=== PATIENT | female | born 1985 ===

== ENCOUNTER 2024-09-09 19:53 | Inpatient (IN) | payer OTHER, SELFPAY ==
--- NOTE | ~2024-09-09 | XR_ITS ---
EXAMINATION: XR CHEST CLINICAL INFORMATION: productive cough, r/o pneumonia COMPARISON: None available. TECHNIQUE: 2 views of the chest were obtained. FINDINGS: The lungs are clear. The cardiomediastinal silhouette is normal in size. There is no pleural effusion or pneumothorax. No acute osseous abnormality. Dextrocurvature of the thoracic spine. XR/XR chest 2V IMPRESSION: No acute cardiopulmonary findings. Electronically signed by: Demetri Lennon MD 09/10/2024 08:33 PM [facility]
--- NOTE | ~2024-09-09 | US_ITS ---
EXAMINATION: US PELVIS CLINICAL INFORMATION: Vaginal bleeding COMPARISON: None available. TECHNIQUE: Ultrasound of the pelvis is performed using both transabdominal and transvaginal transducers along with Doppler. Transvaginal imaging is performed due to inadequate visualization transabdominally. FINDINGS: Uterus: The uterus is anteverted and measures 10.8 x 3.9 x 5.4 cm. The double wall endometrial thickness is 11 mm. The uterus is smooth in contour and has normal myometrial echogenicity. A single left lateral uterine body probable fibroid is present measuring 2.4 x 1.6 x 2.3 cm. Nabothian cysts are present in the cervix one of which appears complex with echogenic fluid throughout. Adnexa: Both ovaries are visualized. There is normal color flow to the adnexa. There is no ovarian torsion. There is no pelvic ascites or fluid collection. Right ovary measures 4.1 x 1.7 x 2.5 cm for a volume of 9.1 cc which includes a 1.6 cm cyst. Left ovary measures 2.0 x 1.5 x 1.6 cm for a volume of 2.5 cc. US/US pelvic and transvaginal IMPRESSION: 1. A cause for the patient's vaginal bleeding has not been found. 2. Incidental note made of a 2.4 cm uterine fibroid and a 1.6 cm right ovarian cyst. Electronically signed by: Jaime Manzo MD 09/20/2024 05:35 PM [facility]
[2024-09-09 20:30] VITALS: BMI 30.2
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
--- NOTE | 2024-09-10 04:50 | PC.NURSE ---
Patient was unable to answer most of the questions on admission or explain any new medication changes she has had recently.
[2024-09-10 08:00] VITALS: BP 114/56; PULSE 84; TEMP 36.7; O2SAT 99
[2024-09-10] MEDS: Nicotine Polacrilex 2 MG GUM BUCCAL (09:34)
--- NOTE | 2024-09-10 09:54 | PC.NURSE ---
Spoke to Debbie regarding her documented allergies. She stated that she is not allergic to acetaminophen, she used to take it all the time. She said that she is not allergic to hydrogen peroxide; has an intolerance to dairy which is rectified by lactase -(which is listed on incoming medication report from [facility]), and that she does not believe that she is allergic to oxycodone or penicillin, that penicillin messes with my gut laura and that is bad and anything that starts with oxy scares me so it is more of a panic reaction. Provider notified.
[2024-09-10] MEDS: hydrOXYzine HCL 25 MG TABLET PO ×2 (10:46→21:11)
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
--- NOTE | 2024-09-10 11:57 | HO.PM.IMCN ---
History of Present Illness Data of Consult Service Date: 09/10/24 Requesting physician: Van Melendez Primary Care Provider: Unknown Physician HPI Reason for consult: medical consult Patient is a 39-year-old female with a past medical history significant for bipolar disorder, eating disorder, migraines, fibromyalgia, hypertension Shante's, GERD, IBS, migraines, mild intermittent reactive airway disease, and ?UT in 2018 (per pt), who was admitted to [facility] for depression and anxiety. She was recently seen at [facility] and was having anxiety and chest pain, workup negative for UT but she felt they were not taking her seriously and started threatening homicidal ideations. She reports somatic symptoms, every time a question is asked she reports that she starts to feel those symptoms. The largest concern that she brought up many times was that she coughs up stephens sputum and has been doing this for quite awhile but has not had any imaging for further evaluation. She does have a history of smoking occasional cigarettes, currently using a patch and also smoking marijuana. She denies any alcohol use. The background to her history of UT is unclear, she reports that she inhaled something which cause this. Review of Systems Constitutional: Constitutional: Denies body ache(s), Denies chills, Denies fever(s) and Denies headache(s) Eyes: Eyes: Denies change in vision ENT: Denies headache(s), Denies nasal congestion and Denies sore throat Cardiovascular: Cardiovascular: Denies chest pain, Denies rapid heart rate, Denies leg edema and Denies dyspnea Respiratory: Respiratory: Reports change in phlegm color (persaud), Denies dyspnea and Denies wheezing Gastrointestinal: Gastrointestinal: Denies constipation, Denies diarrhea, Denies nausea and Denies vomiting Genitourinary: Genitourinary: Denies dysuria Musculoskeletal: Musculoskeletal: Denies myalgias Integumentary/Breasts: Skin/Breast: Denies rash Neurologic: Denies headache(s) and Denies memory loss Psychiatric: Psychiatric: Reports anxiety and Denies memory loss Allergic/Immunologic: Allergic/Immunologic: Denies wheezing [facility] Medical History (Updated 09/10/24 @ 12:10 by Clotilde Villaseñor PA-C) Mild persistent asthma Migraines IBS (irritable bowel syndrome) HTN (hypertension) GERD (gastroesophageal reflux disease) Shante's disease Depression Functional capacity: independent ambulation Social History Do you presently have visiting nurse or other home services: No (PT TOO ANXIOUS TO ANSWER QUESTIONS) Patient Tobacco Use Status: Former Tobacco user Smoked in Last 30 Days: No e-Cigarette/Vaping Use: Never Used Patient Interested in Nicotine Replacement: No Patient Given Instructions on How to Stop Smoking: No Second Hand Smoke Exposure: No Use of substances other than those prescribed or required for medical reasons: Yes Substance Use Type: Marijuana Last Used Substance: Unknown Currently Displaying Signs/Symptoms of Drug Intoxication Withdrawal: No Any prior treatment program specific to substance use: No Spiritual Healthcare Practices: UNKNOWN Jain Healthcare Practices: UNKNOWN Cultural Healthcare Practices: UNKNOWN Advance Directives: No Advance Directives Information Provided: No Do you have thoughts of harming others: None Do you have a plan to hurt others: No Plan Recently lost weight without trying: No Eating poorly because of decreased appetite: No Nutrition Risks: No Nutritional Risk Patient : No : No Poor oral hygiene: No Narrative: smokes occasiona lciagrettes for stress relief. states she grew up with 2 alcoholics, she does not drink. smokes MJ but quitting. Meds Allergies Allergy/AdvReac Type Severity Reaction Status Date / Time hydrogen peroxide Allergy Unknown Verified 09/09/24 23:04 oxycodone [From Percocet] Allergy Rash Verified 09/10/24 00:10 Penicillins Allergy Unknown Verified 09/09/24 22:56 Active Medications: Current Medications Acetaminophen (Acetaminophen 325 Mg Tablet) 650 mg PO Q6H PRN PRN Reason: Headache/Pain Mild Scale (1-3) Al Hydroxide/Mg Hydroxide (Magnesium Hydrox/Alum Hydrox 30 Ml Oral.Susp) 30 ml PO Q6H PRN PRN Reason: Heartburn/Nausea Diphenhydramine HCl (Diphenhydramine Hcl 25 Mg Capsule) 50 mg PO BEDTIME PRN PRN Reason: Sleep Hydroxyzine HCl (Hydroxyzine Hcl 25 Mg Tablet) 25 mg PO Q6H PRN PRN Reason: Anxiety Last Admin: 09/10/24 10:46 Dose: 25 mg Magnesium Hydroxide (Milk Of Magnesia 30 Ml Oral.Susp) 30 ml PO DAILY PRN PRN Reason: Constipation Melatonin (Melatonin 3 Mg Tablet) 3 mg PO BEDTIME PRN PRN Reason: Insomnia Nicotine (Nicotine 7 Mg Patch.Td24) 7 mg TRANSDERMA DAILY GREGG Nicotine Polacrilex (Nicotine Polacrilex 2 Mg Gum) 2 mg BUCCAL Q2H PRN PRN Reason: Nicotine Cravings Last Admin: 09/10/24 09:34 Dose: 2 mg Trazodone HCl (Trazodone Hcl 50 Mg Tablet) 50 mg PO BEDTIME MRX1 PRN PRN Reason: Insomnia Home Medications ?Medication ?Instructions ?Recorded ?Confirmed ?Last Taken ?Type albuterol sulfate 90 mcg/actuation 2 puff inhalation Q4-6H PRN dyspnea 09/10/24 09/10/24 Unknown History aerosol inhaler (Ventolin HFA) ferrous sulfate 325 mg (65 mg 325 mg PO QAM 09/10/24 09/10/24 Unknown History iron) tablet,delayed release levothyroxine 25 mcg tablet 25 mcg PO DAILY 09/10/24 09/10/24 Unknown History oxcarbazepine 300 mg tablet 300 mg PO BID 09/10/24 09/10/24 Unknown History oxcarbazepine 600 mg tablet 600 mg PO BID 09/10/24 09/10/24 Unknown History prazosin 2 mg capsule 5 mg PO BEDTIME 09/10/24 09/10/24 Unknown History Physical Exam Vital Signs and Narrative: Vital Signs: Last Vital Signs Temp 98.0 F 09/10/24 08:00 Pulse 84 09/10/24 08:00 BP 114/56 L 09/10/24 08:00 Pulse Ox 99 09/10/24 08:00 O2 Del Method Room Air 09/10/24 08:00 BMI result Body Mass Index 30.2 General: AOx3, no acute distress Resp: CTA bilaterally, minimal effort with deep inspiration states cannot take a deep breath since seeing a chiropractor CVS: S1, S2, RRR GI: +BS, NT, no distention Skin: Warm, dry Neuro: Cranial nerves II-XII grossly intact bilaterally. Motor grossly intact bilaterally. normal sensation. strength 5/5 bilaterally upper and lower extremities. Extremities: No edema Psych: somatization, anxious Assessment and Plan (1) Medical clearance for psychiatric admission: Status: Acute (2) Productive cough: Status: Acute Plan Patient is a 39-year-old female with a past medical history significant for bipolar disorder, eating disorder, migraines, fibromyalgia, hypertension Shante's, GERD, IBS, migraines, mild intermittent reactive airway disease, and ?UT in 2018 (per pt), who was admitted to adult psych for depression and anxiety with HI. mood disorder - plan per psych productive cough - lungs normal on exam but difficult to auscultate - recent CBC normal, no fever - pneumonia unlikely, sputum production likely due smoking history - CXR for reassurance and to r/o walking pneumonia - CBC in pending labs mild persistent asthma - no acute exacerbation - no maintenance inhalers for quite a while - continue with albuterol PRN, if needing to use frequently consider adding advair Hashimotos - continue levothyroxine occasional tobacco use - has nicotine patch - smoking cessation discussed Thank you for allowing me to participate in the pt's care. Please contact the medical team if any questions or concerns.
[2024-09-10 12:02] LABS: MANUAL DIFF FLAG NO
[2024-09-10 12:06] LABS: Basophils Absolute Auto 0.1 X10*3/uL (0.0-0.2); Basophils Percent Auto 0.8 % (0-2); Eosinophils Absolute Auto 0.5 X10*3/uL (0.0-0.4); Eosinophils Percent Auto 3.9 % (0-4); Hematocrit 31.7 % (37.0-47.0); Hemoglobin 9.9 g/dl (12.0-16.0); Imm Gran Abs Auto 0.04 X10*3/uL (0.00-0.03); Imm Gran Pct Auto 0.3 % (0.0-0.4); Lymphocytes Absolute Auto 2.1 X10*3/uL (1.2-4.9); Lymphocytes Percent Auto 17.7 % (20-40); Mean Corpuscular HGB Conc 31.2 g/dl (31.0-35.0); Mean Corpuscular Hemoglobin 23.3 pg (27.0-33.0); Mean Corpuscular Volume 74.6 fL (80.0-98.0); Mean Platelet Volume 9.9 fL (9.4-12.3); Monocytes Absolute Auto 0.9 X10*3/uL (0.1-1.2); Monocytes Percent Auto 7.5 % (2-11); Neutrophils Absolute Auto 8.3 x10*3/uL (2.0-8.3); Neutrophils Percent Auto 69.8 % (45-73); Platelet Count 340 X10*3/uL (160-400); Red Blood Count 4.25 X10*6/uL (4.20-5.50); Red Cell Distribution Width 15.9 % (11.0-16.0); White Blood Count 11.9 X10*3/uL (4.8-10.8)
[2024-09-10 12:28] LABS: Alanine Aminotransferase 28 U/L (0-31); Albumin Level 4.2 g/dL (3.5-5.0); Alkaline Phosphatase 80 U/L (39-117); Anion Gap 13 (12-20); Aspartate Amino Transferase 22 U/L (5-31); Bilirubin Total 0.3 mg/dL (0.0-1.0); Blood Urea Nitrogen 10 mg/dL (9-16); Calcium 9.2 mg/dL (8.4-10.2); Carbon Dioxide 24 mmol/L (22-29); Chloride 104 mmol/L (96-108); Cholesterol 150 mg/dL (<200); Creatinine Clr Calc Pharmacy 130.3; Estimated Glomerular Filt Rate > 60; Glucose Fasting 95 mg/dL (60-99); HDL Cholesterol 60 mg/dL (>40); LDL Cholesterol Calculated 70 mg/dL (<100); Potassium 4.1 mmol/L (3.3-5.1); Sodium 137 mmol/L (135-145); Total Protein 7.3 g/dL (6.5-8.0); Triglycerides 102 mg/dL (<150)
[2024-09-10 12:42] LABS: Thyroid Stimulating Hormone 1.05 uIU/mL (0.32-4.0)
[2024-09-10] MEDS: Nicotine 7 MG PATCH.TD24 TRANSDERMA (13:13)
[2024-09-10 20:00] VITALS: BP 110/74; PULSE 82; RESP 16; TEMP 36.7; O2SAT 98
[2024-09-10] MEDS: ARIPiprazole 5 MG TABLET PO (21:11)
[2024-09-10] MEDS: lamoTRIgine 25 MG TABLET PO (21:12)
[2024-09-10] MEDS: traZODone HCL 50 MG TABLET PO (21:19)
--- NOTE | 2024-09-11 07:23 | PC.NURSE ---
Patient asked for her Levothyroxine 25 mcg po that is on her home med list. Medication not found on current MAR. Mark Gordon notified via [place] text, she will put in when she arrives at the hospital. Patient made aware.
[2024-09-11] MEDS: Nicotine 7 MG PATCH.TD24 TRANSDERMA (07:53)
[2024-09-11 08:00] VITALS: RESP 18
[2024-09-11] MEDS: Levothyroxine Sodium 25 MCG TABLET PO (09:57)
[2024-09-11 10:57] VITALS: BP 118/65; PULSE 94
--- NOTE | 2024-09-11 12:49 | HO.PSYCHPN ---
Subjective Subjective Date of Service: 09/11/24 Reason For Visit: Bipolar 1 disorder Subjective Notes: Conditional Voluntary Healthcare Proxy: No Guardianship: No Medical Problems Affecting Mental Status: No Interim History: Team report pt slept for eight hours, she affirmed, stating she slept well. Discussion was with some tangential content. Review of medications with adjustments Pt discussed her distress at being given an FENTON by [facility] team and the pain she experienced post injection- I think they are sick of me and don't like me any more. Discussed voice to skull technology as is on [employer] (Remote Neural Monitoring) and hearing voices that are caused by secret govt. Pt is fearful of this and believes she has been afflicted with black outs, catching herself saying untrue statements or possibly having executive function impairement as she reports her father has. Discussed having 2 broken teeth. We will contact her dentistJett to arrange OP appt. Medication Compliance: Yes Side effects from medications: No Attending Groups: No Review of Systems Acute medical concerns: No Review of Systems Review of Systems Denies Mental Status Exam Mental Status Exam Patient Appearance: Appropriate Patient Orientation: Person, Place and Situation Level of Consciousness: Alert Patient Behavior: Talkative, Anxious and Good Eye Contact Mood Description: Anxious and Apprehensive Affect Description: Fearful, Anxious and Apprehensive Patient Cognition Impaired: No Ability to Follow Directions: Good Speech Pattern: Spontaneous Speech Memory Description: Episodic Impaired Hallucinations: Auditory Delusions: Paranoid Ideation and Present Perceptual Disturbances: Derealization Thought Process: Distracted and Rumination Thought Content: positive for Circumstantial, positive for Perseveration and positive for Preoccupation Depressive Symptoms: Increased Anxiety Judgement: Fair Diagnostics Vital Signs (24Hr): Vital Signs - 24 hr 09/10/24 20:00 09/11/24 08:00 09/11/24 10:57 Temperature 98.1 F Pulse Rate 82 94 Respiratory Rate 16 18 Blood Pressure 110/74 118/65 Pulse Oximetry 98 Oxygen Delivery Method Room Air BMI result Body Mass Index 30.2 Labs 09/10/24 11:38 09/10/24 11:38 Labs: Laboratory Results - last 48 hr 09/10/24 11:38 WBC 11.9 H RBC 4.25 Hgb 9.9 L Hct 31.7 L MCV 74.6 L MCH 23.3 L MCHC 31.2 RDW 15.9 Plt Count 340 MPV 9.9 Immature Gran % (Auto) 0.3 Neut % (Auto) 69.8 Lymph % (Auto) 17.7 L [place] % (Auto) 7.5 Eos % (Auto) 3.9 Baso % (Auto) 0.8 Lymph # (Auto) 2.1 [place] # (Auto) 0.9 Eos # (Auto) 0.5 H Baso # (Auto) 0.1 Abs Immat Gran (auto) 0.04 H Absolute Neuts (auto) 8.3 Absolute Nucleated RBC 0.000 Nucleated RBC % (auto) 0.0 Sodium 137 Potassium 4.1 Chloride 104 Carbon Dioxide 24 Anion Gap 13 BUN 10 Creatinine 0.71 Estim Creat Clear Calc 130.3 Estimated GFR > 60 Fasting Glucose 95 Calcium 9.2 Total Bilirubin 0.3 AST 22 ALT 28 Alkaline Phosphatase 80 Total Protein 7.3 Albumin 4.2 Triglycerides 102 Cholesterol 150 LDL Cholesterol, Calc 70 HDL Cholesterol 60 TSH 1.05 Imaging Radiology Impressions: ITS Impressions Chest X-Ray 09/10/24 12:43 IMPRESSION: No acute cardiopulmonary findings. Electronically signed by: Demetri Lennon MD 09/10/2024 08:33 PM [facility] [place] Medications Medications Current Medications Acetaminophen (Acetaminophen 325 Mg Tablet) 650 mg PO Q6H PRN PRN Reason: Headache/Pain Mild Scale (1-3) Al Hydroxide/Mg Hydroxide (Magnesium Hydrox/Alum Hydrox 30 Ml Oral.Susp) 30 ml PO Q6H PRN PRN Reason: Heartburn/Nausea Albuterol Sulfate (Albuterol Sulfate 90 Mcg 8 Gm Inhaler) 2 puff INHALE RQ4H PRN PRN Reason: Wheezing Aripiprazole (Aripiprazole 5 Mg Tablet) 5 mg PO BEDTIME GREGG Diphenhydramine HCl (Diphenhydramine Hcl 25 Mg Capsule) 50 mg PO BEDTIME PRN PRN Reason: Sleep Fluticasone/Vilanterol (Fluticasone/Vilanterol 100/25 Blst.W.Dev) 1 puff INHALE RDAILY GREGG Hydroxyzine HCl (Hydroxyzine Hcl 25 Mg Tablet) 25 mg PO Q6H PRN PRN Reason: Anxiety Last Admin: 09/10/24 21:11 Dose: 25 mg Lactase (Lactase Tablet) 2 tab PO TIDWM GREGG Lamotrigine (Lamotrigine 25 Mg Tablet) 25 mg PO BEDTIME [facility] Last Admin: 09/10/24 21:12 Dose: 25 mg Levothyroxine Sodium (Levothyroxine Sodium 25 Mcg Tablet) 25 mcg PO DAILY@0600 [facility] Last Admin: 09/11/24 09:57 Dose: 25 mcg Magnesium Hydroxide (Milk Of Magnesia 30 Ml Oral.Susp) 30 ml PO DAILY PRN PRN Reason: Constipation Melatonin (Melatonin 3 Mg Tablet) 3 mg PO BEDTIME PRN PRN Reason: Insomnia Nicotine (Nicotine 7 Mg Patch.Td24) 7 mg TRANSDERMA DAILY [facility] Last Admin: 09/11/24 07:53 Dose: 7 mg Nicotine Polacrilex (Nicotine Polacrilex 2 Mg Gum) 2 mg BUCCAL Q2H PRN PRN Reason: Nicotine Cravings Last Admin: 09/10/24 09:34 Dose: 2 mg Trazodone HCl (Trazodone Hcl 50 Mg Tablet) 50 mg PO BEDTIME MRX1 PRN PRN Reason: Insomnia Last Admin: 09/10/24 21:19 Dose: 50 mg Allergies Allergies Allergy/AdvReac Type Severity Reaction Status Date / Time hydrogen peroxide Allergy Unknown Verified 09/09/24 23:04 oxycodone [From Percocet] Allergy Rash Verified 09/10/24 00:10 Penicillins Allergy Unknown Verified 09/09/24 22:56 Assessment & Plan Assessment & Plan (1) Productive cough: Status: Acute Code(s): R05.8 - Other specified cough (2) Depression: Status: Acute Code(s): F32.A - Depression, unspecified Plan 09/11/24 -Med review completed with pt, questions addressed, changes made. -Encourage milieu participation -B12,Folate, Iron Profile Reason for continued inpatient stay Substantial Risk for: rapid decompensation and med/psych decompensation Time Spent With Patient Time: Total time managing care of this patient today ____ minutes.
[2024-09-11] MEDS: Acetaminophen 325 MG TABLET 650 MG PO (14:58)
[2024-09-11] MEDS: Lactase TABLET 2 TAB PO (17:16)
[2024-09-11] MEDS: hydrOXYzine HCL 25 MG TABLET PO (19:50)
[2024-09-11 20:00] VITALS: BP 118/70; PULSE 97; RESP 18; TEMP 37.2; O2SAT 99
[2024-09-11] MEDS: lamoTRIgine 25 MG TABLET PO (20:28)
[2024-09-11] MEDS: OXcarbazepine 300 MG TABLET PO (20:28)
[2024-09-11] MEDS: ARIPiprazole 5 MG TABLET PO (20:28)
[2024-09-11] MEDS: traZODone HCL 50 MG TABLET PO (21:27)
[2024-09-12] MEDS: Levothyroxine Sodium 25 MCG TABLET PO (07:23)
[2024-09-12 08:00] VITALS: BP 100/52; PULSE 77; RESP 16; TEMP 36.5; O2SAT 99
[2024-09-12 09:01] LABS: Iron 13 mcg/dL (30-160); Percent Iron Saturation 4 % (15-50); Total Iron Binding Capacity 332 mcg/dL (228-428); Unsaturated Iron Binding 319 ug/dL
[2024-09-12] MEDS: Nicotine 7 MG PATCH.TD24 TRANSDERMA (09:03)
[2024-09-12] MEDS: hydrOXYzine HCL 25 MG TABLET PO ×2 (09:07→21:38)
[2024-09-12 09:37] LABS: Folate 13.2 ng/mL (> or = 4.0); Vitamin B12 633 pg/mL (200-900)
[2024-09-12] MEDS: Acetaminophen 325 MG TABLET 650 MG PO ×2 (09:48→18:12)
[2024-09-12] MEDS: Lactase TABLET 2 TAB PO ×3 (09:51→17:23)
--- NOTE | 2024-09-12 12:49 | P.PNPSI_ITS ---
Subjective Subjective Date of Service: 09/12/24 Reason For Visit: Bipolar 1 disorder Subjective Notes: Conditional Voluntary Healthcare Proxy: No Guardianship: No Medical Problems Affecting Mental Status: No Interim History: 39 yo continues psychotic- asking me about interaction with trileptal and abilify and it lowering effectiveness of abilify- Spiritual references- low frustration tolerance - report from nursing Pt reports sleeping Medication Compliance: Yes Side effects from medications: Yes (angry about long acting injectable abilify can't get out ) Attending Groups: Intermittent Review of Systems Acute medical concerns: No Medical Review of Systems: unchanged Mental Status Exam Mental Status Exam Patient Appearance: Unkempt Patient Orientation: Person, Place, Time and Situation Level of Consciousness: Awake Patient Behavior: Guarded, Talkative and Good Eye Contact Behavior Comments: wearing a mask in bed, asked her if she wanted me to wear a mask- said no then got up and took off her mask intense eye contact Mood Description: Anxious Affect Description: Blunted and Apprehensive Patient Cognition Impaired: No Ability to Follow Directions: Fair Speech Pattern: Clear and Rambling Hallucinations: None Delusions: Paranoid Ideation Thought Process: Illogical Thought Content: positive for Disorganized Depressive Symptoms: Increased Anxiety, Increased Irritability and Difficulty Concentrating Abnormal Motor Activity Signs and Symptoms: Restlessness Judgement: Poor Diagnostics Vital Signs (24Hr): Vital Signs - 24 hr 09/11/24 20:00 Temperature 98.9 F Pulse Rate 97 Respiratory Rate 18 Blood Pressure 118/70 Pulse Oximetry 99 Oxygen Delivery Method Room Air BMI result Body Mass Index 30.2 Labs 09/10/24 11:38 09/10/24 11:38 Labs: Laboratory Results - last 48 hr 09/12/24 08:25 Iron 13 L TIBC 332 % Saturation 4 L Unsat Iron Binding 319 Vitamin B12 633 Folate 13.2 Imaging Radiology Impressions: ITS Impressions Chest X-Ray 09/10/24 12:43 IMPRESSION: No acute cardiopulmonary findings. Electronically signed by: Demetri Lennon MD 09/10/2024 08:[address] [facility] [place] Medications Medications Current Medications Acetaminophen (Acetaminophen 325 Mg Tablet) 650 mg PO Q6H PRN PRN Reason: Headache/Pain Mild Scale (1-3) Last Admin: 09/12/24 09:48 Dose: 650 mg Al Hydroxide/Mg Hydroxide (Magnesium Hydrox/Alum Hydrox 30 Ml Oral.Susp) 30 ml PO Q6H PRN PRN Reason: Heartburn/Nausea Albuterol Sulfate (Albuterol Sulfate 90 Mcg 8 Gm Inhaler) 2 puff INHALE RQ4H PRN PRN Reason: Wheezing Aripiprazole (Aripiprazole 5 Mg Tablet) 5 mg PO BEDTIME [facility] [place] Last Admin: 09/11/24 20:28 Dose: 5 mg Diphenhydramine HCl (Diphenhydramine Hcl 25 Mg Capsule) 50 mg PO BEDTIME PRN PRN Reason: Sleep Fluticasone/Vilanterol (Fluticasone/Vilanterol 100/25 Blst.W.Dev) 1 puff INHALE RDAILY [facility] [place] Hydroxyzine HCl (Hydroxyzine Hcl 25 Mg Tablet) 25 mg PO Q6H PRN PRN Reason: Anxiety Last Admin: 09/12/24 09:07 Dose: 25 mg Lactase (Lactase Tablet) 2 tab PO TIDWM [facility] [place] Last Admin: 09/12/24 12:24 Dose: 2 tab Lamotrigine (Lamotrigine 25 Mg Tablet) 25 mg PO BEDTIME [facility] [place] Last Admin: 09/11/24 20:28 Dose: 25 mg Levothyroxine Sodium (Levothyroxine Sodium 25 Mcg Tablet) 25 mcg PO DAILY@0600 [facility] [place] Last Admin: 09/12/24 07:23 Dose: 25 mcg Magnesium Hydroxide (Milk Of Magnesia 30 Ml Oral.Susp) 30 ml PO DAILY PRN PRN Reason: Constipation Melatonin (Melatonin 3 Mg Tablet) 3 mg PO BEDTIME PRN PRN Reason: Insomnia Nicotine (Nicotine 7 Mg Patch.Td24) 7 mg TRANSDERMA DAILY [facility] [place] Last Admin: 09/12/24 09:03 Dose: 7 mg Nicotine Polacrilex (Nicotine Polacrilex 2 Mg Gum) 2 mg BUCCAL Q2H PRN PRN Reason: Nicotine Cravings Last Admin: 09/10/24 09:34 Dose: 2 mg Oxcarbazepine (Oxcarbazepine 300 Mg Tablet) 300 mg PO BID [facility] [place] Last Admin: 09/12/24 09:02 Dose: 300 mg Prazosin HCl (Prazosin Hcl 5 Mg Capsule) 5 mg PO BEDTIME PRN; Protocol PRN Reason: nightmares Quetiapine Fumarate (Quetiapine Fumarate 50 Mg Tablet) 50 mg PO BID PRN PRN Reason: agitation, psychosis Trazodone HCl (Trazodone Hcl 50 Mg Tablet) 50 mg PO BEDTIME MRX1 PRN PRN Reason: Insomnia Last Admin: 09/11/24 21:27 Dose: 50 mg Allergies Allergies Allergy/AdvReac Type Severity Reaction Status Date / Time hydrogen peroxide Allergy Unknown Verified 09/09/24 23:04 oxycodone [From Percocet] Allergy Rash Verified 09/10/24 00:10 Penicillins Allergy Unknown Verified 09/09/24 22:56 Assessment & Plan Assessment & Plan (1) Psychosis: Status: Acute Code(s): F29 - Unspecified psychosis not due to a substance or known physiological condition Plan 09/11/24 -Med review completed with pt, questions addressed, changes made. -Encourage milieu participation -B12,Folate, Iron Profile 09/12 disorganized thought process hyper-spiritual, concerned about trileptal discussed liver enzyme induction with patient- and will inc abilify- looks like being changed to lamotrigine as well and could move in that direction Patient educated on: medication risk/benefits Informed Consent: further education needed (gave her info on drug drug interaction she was asking about) Reason for continued inpatient stay Substantial Risk for: inability to function and rapid decompensation Time Spent With Patient Time: Total time managing care of this patient today ____ minutes.
[2024-09-12] MEDS: Milk of Magnesia 30 ML ORAL.SUSP PO (17:56)
[2024-09-12 20:00] VITALS: BP 143/81; PULSE 110; RESP 18; TEMP 37.1; O2SAT 99
[2024-09-12] MEDS: traZODone HCL 50 MG TABLET PO (21:35)
[2024-09-12] MEDS: lamoTRIgine 25 MG TABLET PO (21:36)
[2024-09-12] MEDS: OXcarbazepine 300 MG TABLET PO (21:36)
[2024-09-12] MEDS: ARIPiprazole 5 MG TABLET PO (21:36)
[2024-09-13] MEDS: Levothyroxine Sodium 25 MCG TABLET PO (07:13)
[2024-09-13 08:00] VITALS: BP 108/68; PULSE 75; RESP 16; TEMP 36.6; O2SAT 97
[2024-09-13] MEDS: Lactase TABLET 2 TAB PO ×3 (08:22→17:32)
[2024-09-13] MEDS: Nicotine 7 MG PATCH.TD24 TRANSDERMA (08:31)
[2024-09-13] MEDS: Fluticasone/Vilanterol 100/25 BLST.W.DEV 1 PUFF INHALE (08:34)
--- NOTE | 2024-09-13 10:47 | HO.PSYCHPN ---
Subjective Subjective Date of Service: 09/13/24 Reason For Visit: Bipolar 1 disorder Subjective Notes: Conditional Voluntary Healthcare Proxy: No Guardianship: No Medical Problems Affecting Mental Status: No Interim History: Pt refused trileptal -(impulsive decision from something she looked up on webmd and from information I gave her) due to issue with decreasing abilify effect- which she likes as long as it is not injectable-Also angry at provider for not telling her about increase abilify 5mg bid and inc lamotrigine to 25mg bid from daily- though she agrees with change- Continues to allude to skull /spirit connection or conspiracy but if I don't know about it she is sick of explaining it. Medication Compliance: Intermittent (self dced trileptal - I would have advised cross taper) Side effects from medications: Yes (pain at injection site of abilify) Attending Groups: Intermittent Review of Systems Acute medical concerns: No Medical Review of Systems: unchanged Mental Status Exam Mental Status Exam Patient Appearance: Unkempt Patient Orientation: Person, Place, Time and Situation Level of Consciousness: Awake Patient Behavior: Hyperactive, Distractible, Impulsive and Poor Eye Contact Mood Description: Angry Affect Description: Blunted Delusions: Paranoid Ideation Thought Process: Illogical Thought Content: positive for Disorganized Depressive Symptoms: Difficulty Concentrating Abnormal Motor Activity Signs and Symptoms: Restlessness Judgement: Poor Diagnostics Vital Signs (24Hr): Vital Signs - 24 hr 09/12/24 20:00 09/13/24 08:00 Temperature 98.7 F 98 F Pulse Rate 110 H 75 Respiratory Rate 18 16 Blood Pressure 143/81 H 108/68 Pulse Oximetry 99 97 Oxygen Delivery Method Room Air BMI result Body Mass Index 30.2 Labs 09/10/24 11:38 09/10/24 11:38 Labs: Laboratory Results - last 48 hr 09/12/24 08:25 Iron 13 L TIBC 332 % Saturation 4 L Unsat Iron Binding 319 Vitamin B12 633 Folate 13.2 Imaging Radiology Impressions: ITS Impressions Chest X-Ray 09/10/24 12:43 IMPRESSION: No acute cardiopulmonary findings. Electronically signed by: Demetri Lennon MD 09/10/2024 08:[address] [facility] [place] Medications Medications Current Medications Acetaminophen (Acetaminophen 325 Mg Tablet) 650 mg PO Q6H PRN PRN Reason: Headache/Pain Mild Scale (1-3) Last Admin: 09/12/24 18:12 Dose: 650 mg Al Hydroxide/Mg Hydroxide (Magnesium Hydrox/Alum Hydrox 30 Ml Oral.Susp) 30 ml PO Q6H PRN PRN Reason: Heartburn/Nausea Albuterol Sulfate (Albuterol Sulfate 90 Mcg 8 Gm Inhaler) 2 puff INHALE RQ4H PRN PRN Reason: Wheezing Aripiprazole (Aripiprazole 5 Mg Tablet) 5 mg PO BEDTIME [facility] Last Admin: 09/12/24 21:36 Dose: 5 mg Diphenhydramine HCl (Diphenhydramine Hcl 25 Mg Capsule) 50 mg PO BEDTIME PRN PRN Reason: Sleep Fluticasone/Vilanterol (Fluticasone/Vilanterol 100/25 Blst.W.Dev) 1 puff INHALE RDAILY [facility] Last Admin: 09/13/24 08:34 Dose: 1 puff Hydroxyzine HCl (Hydroxyzine Hcl 25 Mg Tablet) 25 mg PO Q6H PRN PRN Reason: Anxiety Last Admin: 09/12/24 21:38 Dose: 25 mg Lactase (Lactase Tablet) 2 tab PO TIDWM [facility] Last Admin: 09/13/24 08:22 Dose: 2 tab Lamotrigine (Lamotrigine 25 Mg Tablet) 25 mg PO BEDTIME [facility] Last Admin: 09/12/24 21:36 Dose: 25 mg Levothyroxine Sodium (Levothyroxine Sodium 25 Mcg Tablet) 25 mcg PO DAILY@0600 [facility] Last Admin: 09/13/24 07:13 Dose: 25 mcg Magnesium Hydroxide (Milk Of Magnesia 30 Ml Oral.Susp) 30 ml PO DAILY PRN PRN Reason: Constipation Last Admin: 09/12/24 17:56 Dose: 30 ml Melatonin (Melatonin 3 Mg Tablet) 3 mg PO BEDTIME PRN PRN Reason: Insomnia Nicotine (Nicotine 7 Mg Patch.Td24) 7 mg TRANSDERMA DAILY [facility] Last Admin: 09/13/24 08:31 Dose: 7 mg Nicotine Polacrilex (Nicotine Polacrilex 2 Mg Gum) 2 mg BUCCAL Q2H PRN PRN Reason: Nicotine Cravings Last Admin: 09/10/24 09:34 Dose: 2 mg Polyethylene Glycol (Polyethylene Glycol 3350 17 Gm Powd.Pack) 17 gm PO DAILY [facility] Prazosin HCl (Prazosin Hcl 5 Mg Capsule) 5 mg PO BEDTIME PRN; Protocol PRN Reason: nightmares Quetiapine Fumarate (Quetiapine Fumarate 50 Mg Tablet) 50 mg PO BID PRN PRN Reason: agitation, psychosis Trazodone HCl (Trazodone Hcl 50 Mg Tablet) 50 mg PO BEDTIME MRX1 PRN PRN Reason: Insomnia Last Admin: 09/12/24 21:35 Dose: 50 mg Allergies Allergies Allergy/AdvReac Type Severity Reaction Status Date / Time hydrogen peroxide Allergy Unknown Verified 09/09/24 23:04 oxycodone [From Percocet] Allergy Rash Verified 09/10/24 00:10 Penicillins Allergy Unknown Verified 09/09/24 22:56 Assessment & Plan Assessment & Plan (1) Psychosis: Status: Acute Code(s): F29 - Unspecified psychosis not due to a substance or known physiological condition Plan 09/11/24 -Med review completed with pt, questions addressed, changes made. -Encourage milieu participation -B12,Folate, Iron Profile 09/12 disorganized thought process hyper-spiritual, concerned about trileptal discussed liver enzyme induction with patient- and will inc abilify- looks like being changed to lamotrigine as well and could move in that direction 09/13 off trileptal by pt refusal I increased abilify po and lamotrigine- Patient educated on: medication risk/benefits Informed Consent: further education needed Reason for continued inpatient stay Substantial Risk for: inability to function and rapid decompensation Time Spent With Patient Time: Total time managing care of this patient today ____ minutes.
[2024-09-13] MEDS: lamoTRIgine 25 MG TABLET PO ×2 (12:17→21:40)
[2024-09-13] MEDS: ARIPiprazole 5 MG TABLET PO ×2 (12:17→21:40)
[2024-09-13] MEDS: Acetaminophen 325 MG TABLET 650 MG PO (13:15)
[2024-09-13 19:48] VITALS: BP 98/56; PULSE 84; RESP 16; TEMP 36.8; O2SAT 99
[2024-09-13] MEDS: traZODone HCL 50 MG TABLET PO (21:40)
[2024-09-13] MEDS: Melatonin 3 MG TABLET PO (21:40)
[2024-09-14] MEDS: Levothyroxine Sodium 25 MCG TABLET PO (06:26)
[2024-09-14 08:00] VITALS: BP 96/50; PULSE 79; RESP 16; TEMP 36.6; O2SAT 98
[2024-09-14] MEDS: Lactase TABLET 2 TAB PO ×3 (08:52→16:57)
[2024-09-14] MEDS: Fluticasone/Vilanterol 100/25 BLST.W.DEV 1 PUFF INHALE (08:53)
[2024-09-14] MEDS: Nicotine 7 MG PATCH.TD24 TRANSDERMA (08:53)
[2024-09-14] MEDS: Acetaminophen 325 MG TABLET 650 MG PO ×2 (08:53→16:39)
[2024-09-14] MEDS: ARIPiprazole 5 MG TABLET PO ×2 (08:53→20:19)
[2024-09-14] MEDS: lamoTRIgine 25 MG TABLET PO ×2 (08:53→20:19)
--- NOTE | 2024-09-14 15:44 | P.PNPSI_ITS ---
Subjective Subjective Date of Service: 09/14/24 Reason For Visit: Bipolar 1 disorder Subjective Notes: Conditional Voluntary and 3 Day (09/18) Healthcare Proxy: No Guardianship: No Interim History: Pt asks to file a three day notice of intent which we did. Reports PCP appt 09/29 which she does not want to miss Finding lamictal helpful Restricted from process groups-she has been reactive per team report. She does very well with structured group programming. Injection site of Abilify is no longer painful. Reports some vertigo-will order orthostatic vital sx for eval. Medication Compliance: Yes Side effects from medications: No (??) Attending Groups: Intermittent Review of Systems vertigo Review of Systems Review of Systems vertigo Mental Status Exam Mental Status Exam Patient Appearance: Fatigued Patient Orientation: Person, Place and Situation Level of Consciousness: Alert Patient Behavior: Appropriate, Talkative, Cooperative and Good Eye Contact Mood Description: Anxious Affect Description: Anxious Patient Cognition Impaired: No Ability to Follow Directions: Good Speech Pattern: Spontaneous Speech Memory Description: Episodic Impaired Hallucinations: None Delusions: Present Perceptual Disturbances: Depersonalization and Derealization Thought Process: Distracted Thought Content: positive for Circumstantial Depressive Symptoms: Increased Anxiety and Increased Fatigue Judgement: Fair Diagnostics Vital Signs (24Hr): Vital Signs - 24 hr 09/13/24 19:48 09/14/24 08:00 Temperature 98.2 F 97.9 F Pulse Rate 84 79 Respiratory Rate 16 16 Blood Pressure 98/56 L 96/50 L Pulse Oximetry 99 98 Oxygen Delivery Method Room Air BMI result Body Mass Index 30.2 Labs 09/10/24 11:38 09/10/24 11:38 Imaging Radiology Impressions: ITS Impressions Chest X-Ray 09/10/24 12:43 IMPRESSION: No acute cardiopulmonary findings. Electronically signed by: Demetri Lennon MD 09/10/2024 08:33 PM [facility] [place] Medications Current Medications Acetaminophen (Acetaminophen 325 Mg Tablet) 650 mg PO Q4H PRN PRN Reason: Headache/Pain Mild Scale (1-3) Al Hydroxide/Mg Hydroxide (Magnesium Hydrox/Alum Hydrox 30 Ml Oral.Susp) 30 ml PO Q6H PRN PRN Reason: Heartburn/Nausea Albuterol Sulfate (Albuterol Sulfate 90 Mcg 8 Gm Inhaler) 2 puff INHALE RQ4H PRN PRN Reason: Wheezing Aripiprazole (Aripiprazole 5 Mg Tablet) 5 mg PO BID [facility] Last Admin: 09/14/24 08:53 Dose: 5 mg Diphenhydramine HCl (Diphenhydramine Hcl 25 Mg Capsule) 50 mg PO BEDTIME PRN PRN Reason: Sleep Fluticasone/Vilanterol (Fluticasone/Vilanterol 100/25 Blst.W.Dev) 1 puff INHALE RDAILY [facility] Last Admin: 09/14/24 08:53 Dose: 1 puff Hydroxyzine HCl (Hydroxyzine Hcl 25 Mg Tablet) 25 mg PO Q6H PRN PRN Reason: Anxiety Last Admin: 09/12/24 21:38 Dose: 25 mg Lactase (Lactase Tablet) 2 tab PO TIDWM [facility] Last Admin: 09/14/24 12:14 Dose: 2 tab Lamotrigine (Lamotrigine 25 Mg Tablet) 25 mg PO BID [facility] Last Admin: 09/14/24 08:53 Dose: 25 mg Levothyroxine Sodium (Levothyroxine Sodium 25 Mcg Tablet) 25 mcg PO DAILY@0600 [facility] Last Admin: 09/14/24 06:26 Dose: 25 mcg Magnesium Hydroxide (Milk Of Magnesia 30 Ml Oral.Susp) 30 ml PO DAILY PRN PRN Reason: Constipation Last Admin: 09/12/24 17:56 Dose: 30 ml Melatonin (Melatonin 3 Mg Tablet) 3 mg PO BEDTIME PRN PRN Reason: Insomnia Last Admin: 09/13/24 21:40 Dose: 3 mg Nicotine (Nicotine 7 Mg Patch.Td24) 7 mg TRANSDERMA DAILY [facility] Last Admin: 09/14/24 08:53 Dose: 7 mg Nicotine Polacrilex (Nicotine Polacrilex 2 Mg Gum) 2 mg BUCCAL Q2H PRN PRN Reason: Nicotine Cravings Last Admin: 09/10/24 09:34 Dose: 2 mg Polyethylene Glycol (Polyethylene Glycol 3350 17 Gm Powd.Pack) 17 gm PO DAILY [facility] Last Admin: 09/13/24 17:40 Dose: Not Given Prazosin HCl (Prazosin Hcl 5 Mg Capsule) 5 mg PO BEDTIME PRN; Protocol PRN Reason: nightmares Quetiapine Fumarate (Quetiapine Fumarate 50 Mg Tablet) 50 mg PO BID PRN PRN Reason: agitation, psychosis Trazodone HCl (Trazodone Hcl 50 Mg Tablet) 50 mg PO BEDTIME MRX1 PRN PRN Reason: Insomnia Last Admin: 09/13/24 21:40 Dose: 50 mg Allergies Allergies Allergy/AdvReac Type Severity Reaction Status Date / Time hydrogen peroxide Allergy Unknown Verified 09/09/24 23:04 oxycodone [From Percocet] Allergy Rash Verified 09/10/24 00:10 Penicillins Allergy Unknown Verified 09/09/24 22:56 Assessment & Plan Assessment & Plan (1) Psychosis: Status: Acute Code(s): F29 - Unspecified psychosis not due to a substance or known physiological condition Plan 09/11/24 -Med review completed with pt, questions addressed, changes made. -Encourage milieu participation -B12,Folate, Iron Profile 09/12 disorganized thought process hyper-spiritual, concerned about trileptal discussed liver enzyme induction with patient- and will inc abilify- looks like being changed to lamotrigine as well and could move in that direction 09/13 off trileptal by pt refusal I increased abilify po and lamotrigine- 09/14- continue tx plan orthostatic vital signs. Reason for continued inpatient stay Substantial Risk for: rapid decompensation and med/psych decompensation Time Spent With Patient Time: Total time managing care of this patient today ____ minutes.
[2024-09-14] MEDS: hydrOXYzine HCL 25 MG TABLET PO (16:39)
[2024-09-14 19:42] VITALS: BP 119/59; PULSE 99; RESP 17; TEMP 36.7; O2SAT 100
[2024-09-14] MEDS: traZODone HCL 50 MG TABLET PO (20:19)
[2024-09-14] MEDS: Melatonin 3 MG TABLET PO (20:20)
[2024-09-15] MEDS: Levothyroxine Sodium 25 MCG TABLET PO (06:49)
[2024-09-15 08:00] VITALS: BP 131/58; BP 145/73; PULSE 95; PULSE 97; RESP 20; TEMP 36.9; O2SAT 100
[2024-09-15] MEDS: Lactase TABLET 2 TAB PO ×3 (08:57→16:56)
[2024-09-15] MEDS: ARIPiprazole 5 MG TABLET PO ×2 (08:57→21:17)
[2024-09-15] MEDS: Nicotine 7 MG PATCH.TD24 TRANSDERMA (08:58)
[2024-09-15] MEDS: lamoTRIgine 25 MG TABLET PO ×2 (08:58→21:17)
[2024-09-15] MEDS: polyethylene glycoL 3350 17 GM POWD.PACK PO (09:00)
[2024-09-15] MEDS: Fluticasone/Vilanterol 100/25 BLST.W.DEV 1 PUFF INHALE (09:02)
[2024-09-15 12:06] VITALS: BP 123/63; BP 131/84; PULSE 132; PULSE 89
[2024-09-15 16:00] VITALS: PULSE 88
[2024-09-15 17:07] VITALS: BP 117/59; BP 127/60; PULSE 114; PULSE 88
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
[2024-09-16] MEDS: Levothyroxine Sodium 25 MCG TABLET PO (06:33)
[2024-09-16 08:00] VITALS: BP 121/55; PULSE 91
[2024-09-16 08:40] VITALS: BP 91/44; PULSE 84; RESP 18; TEMP 36.4; O2SAT 99
[2024-09-16] MEDS: Lactase TABLET 2 TAB PO ×3 (08:48→17:15)
[2024-09-16] MEDS: Fluticasone/Vilanterol 100/25 BLST.W.DEV 1 PUFF INHALE (08:49)
[2024-09-16] MEDS: Nicotine 7 MG PATCH.TD24 TRANSDERMA (08:49)
[2024-09-16] MEDS: Ferrous Sulfate 324 MG TABLET.DR 325 MG PO (08:49)
[2024-09-16] MEDS: ARIPiprazole 5 MG TABLET PO ×2 (08:49→20:55)
[2024-09-16] MEDS: lamoTRIgine 25 MG TABLET PO ×2 (08:49→20:55)
[2024-09-16] MEDS: hydrOXYzine HCL 25 MG TABLET PO ×2 (11:21→19:09)
[2024-09-16] MEDS: Pregabalin 25 MG CAPSULE PO ×2 (14:00→22:00)
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
[2024-09-16 20:00] VITALS: BP 138/81; PULSE 88; TEMP 36.8; O2SAT 100
[2024-09-16] MEDS: traZODone HCL 50 MG TABLET PO ×2 (20:55→23:42)
[2024-09-16] MEDS: Acetaminophen 325 MG TABLET 650 MG PO (22:00)
[2024-09-16] MEDS: Melatonin 3 MG TABLET PO (22:00)
[2024-09-17] MEDS: Acetaminophen 325 MG TABLET 650 MG PO ×3 (06:56→19:30)
[2024-09-17] MEDS: Levothyroxine Sodium 25 MCG TABLET PO (06:56)
[2024-09-17 08:00] VITALS: BP 119/57; PULSE 100; RESP 19; TEMP 36.7; O2SAT 100
[2024-09-17] MEDS: Lactase TABLET 2 TAB PO ×3 (08:39→17:16)
[2024-09-17] MEDS: Ferrous Sulfate 324 MG TABLET.DR 325 MG PO (08:40)
[2024-09-17] MEDS: lamoTRIgine 25 MG TABLET PO ×2 (08:41→20:43)
[2024-09-17] MEDS: Nicotine 7 MG PATCH.TD24 TRANSDERMA (08:41)
[2024-09-17] MEDS: ARIPiprazole 5 MG TABLET PO ×2 (08:41→20:43)
[2024-09-17] MEDS: Fluticasone/Vilanterol 100/25 BLST.W.DEV 1 PUFF INHALE (08:42)
[2024-09-17] MEDS: Pregabalin 25 MG CAPSULE PO ×2 (08:47→20:42)
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
[2024-09-17] MEDS: hydrOXYzine HCL 25 MG TABLET PO (10:21)
[2024-09-17] MEDS: Magnesium Hydrox/Alum Hydrox 30 ML ORAL.SUSP PO (16:56)
[2024-09-17 16:58] VITALS: BP 166/63; PULSE 104; O2SAT 100
[2024-09-17] MEDS: Melatonin 3 MG TABLET PO (20:43)
[2024-09-17] MEDS: traZODone HCL 50 MG TABLET PO (20:45)
[2024-09-18] MEDS: Levothyroxine Sodium 25 MCG TABLET PO (07:21)
[2024-09-18 08:00] VITALS: BP 117/64; PULSE 98; RESP 18; TEMP 36.6; O2SAT 100
[2024-09-18] MEDS: Ferrous Sulfate 324 MG TABLET.DR 325 MG PO (08:35)
[2024-09-18] MEDS: Lactase TABLET 2 TAB PO ×3 (08:35→18:12)
[2024-09-18] MEDS: Fluticasone/Vilanterol 100/25 BLST.W.DEV 1 PUFF INHALE (08:35)
[2024-09-18] MEDS: ARIPiprazole 5 MG TABLET PO ×2 (08:35→21:01)
[2024-09-18] MEDS: lamoTRIgine 25 MG TABLET PO (08:36)
[2024-09-18] MEDS: Nicotine 7 MG PATCH.TD24 TRANSDERMA (08:36)
[2024-09-18] MEDS: Pregabalin 25 MG CAPSULE PO ×3 (09:19→21:00)
[2024-09-18] MEDS: Acetaminophen 325 MG TABLET 650 MG PO ×2 (10:13→21:00)
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
[2024-09-18 20:00] VITALS: BP 133/72; PULSE 113; TEMP 36.8; O2SAT 99
[2024-09-18] MEDS: lamoTRIgine 25 MG TABLET 50 MG PO (21:01)
[2024-09-18] MEDS: traZODone HCL 50 MG TABLET PO ×2 (21:04→21:56)
[2024-09-18] MEDS: hydrOXYzine HCL 25 MG TABLET PO (21:56)
[2024-09-18] MEDS: Melatonin 3 MG TABLET PO (21:57)
[2024-09-19] MEDS: Levothyroxine Sodium 25 MCG TABLET PO (06:35)
[2024-09-19 08:08] VITALS: BP 137/65; PULSE 108; TEMP 36.9; O2SAT 98
[2024-09-19] MEDS: Lactase TABLET 2 TAB PO ×3 (08:49→17:09)
[2024-09-19] MEDS: ARIPiprazole 5 MG TABLET PO ×2 (08:51→21:30)
[2024-09-19] MEDS: Ferrous Sulfate 324 MG TABLET.DR 325 MG PO (08:51)
[2024-09-19] MEDS: Fluticasone/Vilanterol 100/25 BLST.W.DEV 1 PUFF INHALE ×2 (08:51→09:20)
[2024-09-19] MEDS: polyethylene glycoL 3350 17 GM POWD.PACK PO (08:51)
[2024-09-19] MEDS: Nicotine 7 MG PATCH.TD24 TRANSDERMA (08:52)
[2024-09-19] MEDS: lamoTRIgine 25 MG TABLET 50 MG PO ×2 (08:52→21:30)
[2024-09-19] MEDS: Acetaminophen 325 MG TABLET 650 MG PO (09:26)
[2024-09-19] MEDS: Pregabalin 25 MG CAPSULE PO ×2 (09:26→21:33)
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
[2024-09-19 19:48] VITALS: BP 115/62; PULSE 116; RESP 18; TEMP 36.4; O2SAT 100
[2024-09-19] MEDS: hydrOXYzine HCL 25 MG TABLET PO (21:30)
[2024-09-19] MEDS: traZODone HCL 50 MG TABLET PO (21:30)
[2024-09-20] MEDS: Levothyroxine Sodium 25 MCG TABLET PO (07:31)
[2024-09-20] MEDS: Ondansetron ODT 4 MG TAB.RAPDIS TRANSLINGU (07:50)
[2024-09-20 08:00] VITALS: BP 104/50; PULSE 85; RESP 18; O2SAT 98
[2024-09-20] MEDS: Lactase TABLET 2 TAB PO (08:47)
[2024-09-20] MEDS: lamoTRIgine 25 MG TABLET 50 MG PO (08:47)
[2024-09-20] MEDS: ARIPiprazole 5 MG TABLET PO (08:48)
[2024-09-20] MEDS: Ferrous Sulfate 324 MG TABLET.DR 325 MG PO (08:48)
[2024-09-20] MEDS: Pregabalin 25 MG CAPSULE PO (08:48)
[2024-09-20] MEDS: polyethylene glycoL 3350 17 GM POWD.PACK PO (08:49)
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
[2024-09-20 10:04] LABS: MANUAL DIFF FLAG NO
[2024-09-20 10:06] LABS: Imm Gran Abs Auto 0.06 X10*3/uL (0.00-0.03); Imm Gran Pct Auto 0.6 % (0.0-0.4)
[2024-09-20 10:12] LABS: Basophils Absolute Auto 0.1 X10*3/uL (0.0-0.2); Basophils Percent Auto 0.7 % (0-2); Eosinophils Absolute Auto 0.2 X10*3/uL (0.0-0.4); Lymphocytes Absolute Auto 1.6 X10*3/uL (1.2-4.9); Lymphocytes Percent Auto 15.5 % (20-40); Mean Corpuscular HGB Conc 30.6 g/dl (31.0-35.0); Mean Corpuscular Volume 75.3 fL (80.0-98.0); Mean Platelet Volume 9.2 fL (9.4-12.3); Monocytes Absolute Auto 0.7 X10*3/uL (0.1-1.2); Monocytes Percent Auto 6.4 % (2-11); NRBC Pct Auto 0.2 /100WBC (0.0-0.2); Neutrophils Absolute Auto 7.9 x10*3/uL (2.0-8.3); Neutrophils Percent Auto 74.8 % (45-73); Platelet Count 479 X10*3/uL (160-400); Red Blood Count 2.43 X10*6/uL (4.20-5.50); Red Cell Distribution Width 15.6 % (11.0-16.0); White Blood Count 10.6 X10*3/uL (4.8-10.8)
[2024-09-20 10:17] LABS: Hematocrit 18.3 % (37.0-47.0); Hemoglobin 5.6 g/dl (12.0-16.0)
--- NOTE | 2024-09-20 10:19 | PC.NURSE ---
Addendum entered by Adriana Mitchell RN 09/20/24 11:49: Report given to Misty RN. Addendum entered by Adriana Mitchell RN 09/20/24 11:12: Type & Screen completed. Pelvic Ultrasound completed. Pt being transferred to Room 369. Pt aware & has no questions at this time. Original Note: Critical Labs HGB 5.6 [address] 18[address]3. Dr. Griffiths notified. Medicine notified.
[2024-09-20 10:33] LABS: Alanine Aminotransferase 42 U/L (0-31); Albumin Level 3.8 g/dL (3.5-5.0); Alkaline Phosphatase 66 U/L (39-117); Anion Gap 12 (12-20); Aspartate Amino Transferase 28 U/L (5-31); Bilirubin Total 0.2 mg/dL (0.0-1.0); Blood Urea Nitrogen 8 mg/dL (9-16); Calcium 8.5 mg/dL (8.4-10.2); Carbon Dioxide 24 mmol/L (22-29); Chloride 106 mmol/L (96-108); Creatinine Clr Calc Pharmacy 111.5; Estimated Glomerular Filt Rate > 60; Glucose Random 69 mg/dL (60-115); Potassium 4.1 mmol/L (3.3-5.1); Sodium 138 mmol/L (135-145); Total Protein 6.5 g/dL (6.5-8.0)
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
[2024-09-20 19:18] LABS: HCG Quantitative < 2 mIU/mL
== END 2024-09-20 11:51 | disposition home or self-care (01) | DRG 751 ==
PROVIDERS: Psychiatry & Neurology Psychiatry; Admitting Provider Psychiatry & Neurology Psychiatry; Visit Provider Clinical Nurse Specialist Psychiatric/Mental Health, Adult
DX: F33.3 Major depressive disorder, recurrent, severe with psychotic symptoms (principal); E06.3 Autoimmune thyroiditis; K21.9 Gastro-esophageal reflux disease without esophagitis; J45.30 Mild persistent asthma, uncomplicated; F17.290 Nicotine dependence, other tobacco product, uncomplicated; Z71.6 Tobacco abuse counseling; Z79.51 Long term (current) use of inhaled steroids; Z79.899 Other long term (current) drug therapy
CPT/HCPCS: 36415; 71046; 76830; 76856; 80053; 80061; 82607; 82746; 83540; 84443; 84702; 85025

== ENCOUNTER → 2024-09-09 19:53 | Outpatient (BNV) | payer MEDICAID, SELFPAY | PROVIDERS: Admitting Provider Psychiatry & Neurology Psychiatry; Visit Provider Physician Assistant | DX: Z00.8 Encounter for other general examination (principal); R05.8 Other specified cough | CPT/HCPCS: 99222 ==

== ENCOUNTER → 2024-09-09 19:53 | Outpatient (BNV) | payer OTHER, SELFPAY | PROVIDERS: Admitting Provider Psychiatry & Neurology Psychiatry; Visit Provider Clinical Nurse Specialist Psychiatric/Mental Health, Adult | DX: F29 Unspecified psychosis not due to a substance or known physiological condition (principal) | CPT/HCPCS: 99231; 99232 ==

== ENCOUNTER 2024-09-20 11:54 | Inpatient (IN) | payer MEDICAID, SELFPAY ==
[2024-09-20] VITALS (9 sets, daily range): BP systolic 114–127; BP diastolic 55–69; PULSE 79–99; RESP 16–18; TEMP 36.7–37.2; O2SAT 98–100; BMI 28.7
--- NOTE | 2024-09-20 12:49 | PHA.MEDREC ---
Pharmacy Consult ? Medication Reconciliation Pharmacy has completed the medication reconciliation. Patient is direct admit. Utilized discharge packet to confirm meds.
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
[2024-09-20] MEDS: 0.9 % Sodium Chloride Flush 3 ML SYRINGE IVFLUSH ×2 (16:00→22:13)
[2024-09-20] MEDS: Lactase TABLET 1 TAB PO (16:29)
[2024-09-20] MEDS: Pregabalin 25 MG CAPSULE PO (16:29)
[2024-09-20] MEDS: ARIPiprazole 5 MG TABLET PO (19:57)
[2024-09-20] MEDS: lamoTRIgine 25 MG TABLET 50 MG PO (19:57)
[2024-09-20] MEDS: hydrOXYzine HCL 25 MG TABLET PO (20:10)
[2024-09-20] MEDS: Flu Vacc TS2024-25(6mos up)/PF 0.5 ML SYRINGE IM (20:11)
[2024-09-20] MEDS: Butalb/Acetamin/Caff 50/325/40 TABLET 1 TAB PO (20:11)
[2024-09-20 22:12] LABS: Hematocrit 22.7 % (37.0-47.0); Hemoglobin 7.4 g/dl (12.0-16.0)
--- NOTE | 2024-09-20 23:29 | PC.NURSE ---
Addendum entered by Leslie Jacobs RN 09/21/24 00:05: Redraw of H/H: 7.4/.7, Dr. Adames made aware. Original Note: Upon assessment, pt reported migraine 04/29, pt seems agitated on assessment, pt reassured, new orders placed by Dr. Adames. On reassessment pt refused to answer. Camera in room. Pt is resting with lights on, call aquino within reach.
[2024-09-21] VITALS (9 sets, daily range): BP systolic 106–140; BP diastolic 51–63; PULSE 75–93; RESP 12–20; TEMP 36.3–36.8; O2SAT 97–100
[2024-09-21] MEDS: hydrOXYzine HCL 25 MG TABLET PO ×2 (03:03→10:23)
[2024-09-21] MEDS: Levothyroxine Sodium 25 MCG TABLET PO (05:44)
[2024-09-21] MEDS: Fluticasone/Vilanterol 100/25 BLST.W.DEV 1 PUFF INHALE (07:35)
[2024-09-21] MEDS: polyethylene glycoL 3350 17 GM POWD.PACK PO (08:12)
[2024-09-21] MEDS: ARIPiprazole 5 MG TABLET PO ×2 (08:15→20:00)
[2024-09-21] MEDS: Ferrous Sulfate 324 MG TABLET.DR PO (08:15)
[2024-09-21] MEDS: Lactase TABLET 1 TAB PO ×3 (08:15→17:15)
[2024-09-21] MEDS: lamoTRIgine 25 MG TABLET 50 MG PO ×2 (08:15→20:01)
[2024-09-21] MEDS: Pregabalin 25 MG CAPSULE PO ×2 (08:15→14:48)
[2024-09-21] MEDS: 0.9 % Sodium Chloride Flush 3 ML SYRINGE IVFLUSH ×3 (08:17→20:05)
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
[2024-09-21 08:45] LABS: Hematocrit 23.5 % (37.0-47.0); Hemoglobin 7.5 g/dl (12.0-16.0); Mean Corpuscular HGB Conc 31.9 g/dl (31.0-35.0); Mean Corpuscular Volume 78.3 fL (80.0-98.0); Mean Platelet Volume 9.1 fL (9.4-12.3); NRBC Pct Auto 0.2 /100WBC (0.0-0.2); Platelet Count 458 X10*3/uL (160-400); White Blood Count 10.1 X10*3/uL (4.8-10.8)
[2024-09-21 09:15] LABS: Iron 20 mcg/dL (30-160); Percent Iron Saturation 6 % (15-50); Total Iron Binding Capacity 351 mcg/dL (228-428); Unsaturated Iron Binding 331 ug/dL
[2024-09-21 09:30] LABS: Ferritin 7 ng/mL (10-122)
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
[2024-09-21 11:46] LABS: HBsAGNum1 0.36 S/CO (0.00-0.99); HIV AB/AG Nonreactive (Nonreactive); HIV Num 1 0.07 S/CO (0.00-0.99); Hepatitis B Surface Antigen Negative (Negative); Syphilis Screen Nonreactive (Nonreactive); ~HepC Num1 0.11 S/CO (0.00-0.79); ~Hepatitis C Antibody Nonreactive (Nonreactive)
--- NOTE | 2024-09-21 12:42 | MHC.CM.PN ---
pt transferred from plan is for pt to retrun when dcd pt is from [facility] she had mental health servies and housing
[2024-09-21 12:51] LABS: Bacterial Vaginosis PCR POSITIVE (Negative); Candida Group PCR DETECTED (Not Detect); Candida glab krusei PCR NOT DETECTED (Not Detect); Trichomonas vaginalis PCR NOT DETECTED (Not Detect)
[2024-09-21] MEDS: Butalb/Acetamin/Caff 50/325/40 TABLET 1 TAB PO (13:03)
[2024-09-21 13:22] LABS: CT PCR NOT DETECTED (Not Detect.); NG PCR NOT DETECTED (Not Detect.)
[2024-09-21 13:52] LABS: HPV 16,18/45 See PAP report
[2024-09-21] MEDS: metroNIDAZOLE 0.75 % Vaginal Gel 70 GM TUBE VAGINAL (15:31)
--- NOTE | 2024-09-21 18:21 | MHC.CARE ---
Pt was assessed by the CARE team, Pt?s presentation does not indicate the need to return to or any higher level of care for stabilization. Pt will be discharged once medically clear back to [facility] and will follow up with her outpatient psych providers and [facility]. Disposition was discussed with Dr. Ruthie Gordon and Dr. Veto Sewell which included Pt being referred to for assistance with coordinating transportation back to [facility] and with [facility] who have Pt?s keys to her apartment. Pt is agreeable to being discharged home to follow up with outpatient providers and [facility] services.
[2024-09-22 03:47] VITALS: BP 112/62; PULSE 84; RESP 20; TEMP 36.9; O2SAT 99
[2024-09-22] MEDS: Levothyroxine Sodium 25 MCG TABLET PO (05:39)
[2024-09-22] MEDS: Pregabalin 25 MG CAPSULE PO ×2 (06:47→11:39)
[2024-09-22 07:09] LABS: Hematocrit 26.2 % (37.0-47.0); Hemoglobin 8.4 g/dl (12.0-16.0); Mean Corpuscular HGB Conc 32.1 g/dl (31.0-35.0); Mean Corpuscular Hemoglobin 25.6 pg (27.0-33.0); Mean Corpuscular Volume 79.9 fL (80.0-98.0); Mean Platelet Volume 9.1 fL (9.4-12.3); Platelet Count 463 X10*3/uL (160-400); Red Blood Count 3.28 X10*6/uL (4.20-5.50); Red Cell Distribution Width 17.7 % (11.0-16.0); White Blood Count 11.7 X10*3/uL (4.8-10.8)
[2024-09-22 07:37] VITALS: BP 119/59; PULSE 83; RESP 16; TEMP 37; O2SAT 99
[2024-09-22] MEDS: lamoTRIgine 25 MG TABLET 50 MG PO (08:21)
[2024-09-22] MEDS: metroNIDAZOLE 0.75 % Vaginal Gel 70 GM TUBE VAGINAL (08:21)
[2024-09-22] MEDS: Lactase TABLET 1 TAB PO ×2 (08:22→11:39)
[2024-09-22] MEDS: ARIPiprazole 5 MG TABLET PO (08:22)
[2024-09-22] MEDS: Nicotine 7 MG PATCH.TD24 TRANSDERMA (08:22)
[2024-09-22] MEDS: Ferrous Sulfate 324 MG TABLET.DR PO (08:22)
[2024-09-22] MEDS: 0.9 % Sodium Chloride Flush 3 ML SYRINGE IVFLUSH (08:25)
[2024-09-22] MEDS: polyethylene glycoL 3350 17 GM POWD.PACK PO (08:25)
[2024-09-22] MEDS: Fluticasone/Vilanterol 100/25 BLST.W.DEV 1 PUFF INHALE (08:33)
[2024-09-22 08:34] VITALS: PULSE 83; RESP 16; O2SAT 98
--- NOTE | 2024-09-22 10:48 | MHC.CM.PN ---
Patient medically cleared for dc home self care. 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 CM spoke w/ [facility] and they are aware and will resume services.
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
[2024-09-22] MEDS: Fluconazole 150 MG TABLET PO (11:39)
--- NOTE | 2024-09-22 12:38 | PM.EVENT ---
Event Note Date of Service: 09/22/24 Event Note: Pt seen on med floor, . Pt pleasant future oriented feels stable for d/c . Reviewed medication with the pt . Case reviewed with Dr Laws Time Spent With Patient Time: Total time managing care of this patient today 20____ minutes.
--- NOTE | 2024-09-22 13:31 | P.CDIM_ITS ---
PROVIDER RESPONSE TEXT: To clarify, the appropriate diagnosis supported by the clinical indicators: Iron deficiency anemia secondary to acute blood loss: vaginal bleed QUERY TEXT: PHYSICIAN'S DOCUMENTATION REQUEST Date of Query: 09/22/2024 09:57 AM EST Patient Name: Elysia Godinez Admit Date: 09/20/2024 Dear Donato Laws MD, A review of the medical record indicates additional documentation may be needed. Please review below and update the documentation accordingly. Clinical Indicators: LABS: Iron 20 L Transfusions 3units prbc Progress note: Low iron and iron sats as well as ferritin, tibc normal. Monitor h/h closely, added iron tabs, vitamin c. Based on the above, could you clarify which of the following is the most likely type of anemia you ar e evaluating, treating, and/or monitoring? Iron deficiency anemia secondary to acute blood loss suspected, possibly, probable etc. Iron deficiency anemia Other (explain) Clinically unable to determine (explain) Thank you, Diana Mclaughlin, CCS, CDIS Use of terms such as suspected, likely, concern for, or probable (associated with a specific diagnosi s that is being evaluated, monitored, or treated as if it exists) are acceptable and can be coded in the inpatient se tting, when documented at the time of discharge. Please use your independent medical judgment in providing your response. THIS QUERY IS PART OF THE PERMANENT MEDICAL RECORD
== END 2024-09-22 13:02 | disposition home or self-care (01) | DRG 517 ==
PROVIDERS: Obstetrics & Gynecology; Student in an Organized Health Care Education/Training Program; Admitting Provider Internal Medicine; Visit Provider Internal Medicine
DX: N93.9 Abnormal uterine and vaginal bleeding, unspecified (principal); D62 Acute posthemorrhagic anemia; D25.9 Leiomyoma of uterus, unspecified; E03.9 Hypothyroidism, unspecified; J45.30 Mild persistent asthma, uncomplicated; N83.201 Unspecified ovarian cyst, right side; N88.8 Other specified noninflammatory disorders of cervix uteri; N76.0 Acute vaginitis; M79.7 Fibromyalgia; Z23 Encounter for immunization; F31.9 Bipolar disorder, unspecified; I10 Essential (primary) hypertension; Z79.51 Long term (current) use of inhaled steroids; Z79.890 Hormone replacement therapy; Z79.899 Other long term (current) drug therapy
CPT/HCPCS: 0352U; 36415; 58100; 58300; 82728; 83540; 85014; 85018; 85027; 86780; 86803; 86850; 86900; 86901; 86923; 87340; 87389; 87491; 87591; 87624; 88175; 88305; 90656; 94640; 94664; J7298; P9016

== ENCOUNTER → 2024-09-20 11:54 | Outpatient (BNV) | payer MEDICAID, SELFPAY | PROVIDERS: Admitting Provider Internal Medicine; Visit Provider Student in an Organized Health Care Education/Training Program | DX: D62 Acute posthemorrhagic anemia (principal) | CPT/HCPCS: 99223; 99232; 99239 ==

== ENCOUNTER → 2024-09-20 11:54 | Outpatient (BNV) | payer MEDICAID, SELFPAY | PROVIDERS: Admitting Provider Internal Medicine; Visit Provider Obstetrics & Gynecology | DX: N93.9 Abnormal uterine and vaginal bleeding, unspecified (principal); D64.9 Anemia, unspecified; Z11.3 Encounter for screening for infections with a predominantly sexual mode of transmission; D25.9 Leiomyoma of uterus, unspecified | CPT/HCPCS: 58100; 58301; 99222 ==